=== PATIENT | male | born 1975 | race Caucasian/White ===

== ENCOUNTER 2020-08-20 09:03 | Emergency (ER) | payer OTHER ==
[2020-08-20] MEDS ORDERED: Ketorolac Tromethamine 30 MG/ML VIAL ONE (09:46)
[2020-08-20] MEDS ORDERED: Acetaminophen 500 MG TAB ONE (09:46)
== END 2020-08-20 10:20 | disposition home or self-care (01) ==
LOC: NAV ERS 09:03
DX: S13.9XXA Sprain of joints and ligaments of unspecified parts of neck, initial encounter (principal); S23.3XXA Sprain of ligaments of thoracic spine, initial encounter; I10 Essential (primary) hypertension; V89.2XXA Person injured in unspecified motor-vehicle accident, traffic, initial encounter
CPT/HCPCS: 72050; 96372; J1885